=== PATIENT | female | born 2005 | race Hispanic/Latino ===

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

== ENCOUNTER 2024-02-29 06:17 | Emergency (ER) | payer OTHER, SELFPAY | END 2024-02-29 07:13 | disposition home or self-care (01) | LOC: MADERS 06:17 | DX: F41.9 Anxiety disorder, unspecified (principal) | CPT/HCPCS: 99283 ==